=== PATIENT | female | born 1960 | race Caucasian/White ===

== ENCOUNTER → 2016-08-05 | Outpatient (CLI) | payer OTHER | LOC: FIMAGING 11:14 | PROVIDERS: ATTEND Obstetrics & Gynecology | DX: Z12.31 Encounter for screening mammogram for malignant neoplasm of breast (principal) | CPT/HCPCS: G0202 ==

== ENCOUNTER → 2017-12-08 | Outpatient (CLI) | payer OTHER | LOC: FIMAGING 13:31 | PROVIDERS: ATTEND Internal Medicine | DX: Z12.31 Encounter for screening mammogram for malignant neoplasm of breast (principal); R92.8 Other abnormal and inconclusive findings on diagnostic imaging of breast ==

== ENCOUNTER → 2017-12-24 | Outpatient (CLI) | payer OTHER | LOC: BRMIMAGING 08:42 | PROVIDERS: ATTEND Internal Medicine | DX: N60.02 Solitary cyst of left breast (principal) | CPT/HCPCS: 76641-PO ==